=== PATIENT | female | born 1985 | race Caucasian/White ===

== ENCOUNTER 2018-10-12 12:17 | Emergency (ER) | payer MEDICAID ==
[~2018-10-12] VITALS: Ht 160 cm; Wt 86.4 kg
[2018-10-12 12:21] VITALS: BP 129/82
[2018-10-12] MEDS ORDERED: CEPH500C5 PO (13:13)
[2018-10-12] MEDS ORDERED: MUPI22OI30 TOP (13:13)
[2018-10-12] MEDS ORDERED: TRIA15OI2 TOP (13:13)
== END 2018-10-12 13:35 | disposition home or self-care (01) ==
LOC: ER 12:18
DX: L03.032 Cellulitis of left toe (principal); B35.1 Tinea unguium
CPT/HCPCS: 82948; 99283

== ENCOUNTER 2019-09-24 01:07 | Emergency (ER) | payer MEDICAID ==
[~2019-09-24] VITALS: Ht 160 cm; Wt 92.0 kg
[~2019-09-24 01:07] MED LIST: CEPH500C5 PO; TRIA15OI2 TOP
[2019-09-24] MEDS ORDERED: proCHLORperazine 10 MG/2 ml inj IV ONE (01:25)
[2019-09-24] MEDS ORDERED: ondansetron/PF 4mg/2ml inj IV ONE (01:25)
[2019-09-24] MEDS ORDERED: normal saline 1000ML IV soln IVB ONE (01:25)
[2019-09-24] MEDS ORDERED: LOPE2TAB25 PO (02:50)
[2019-09-24] MEDS ORDERED: ONDA8TAB6 PO (02:50)
[2019-09-24] MEDS ORDERED: loperamide 2mg capsule PO ONE (02:50)
[2019-09-24] MEDS ORDERED: ketorolac trometh. 30mg/ml inj. IV ONE (03:35)
[2019-09-24 03:55] LABS: ALANINE AMINOTRANSFERASE 29 U/L (12-78); ALBUMIN 4.1 G/DL (3.4-5.0); ALBUMIN/GLOBULIN RATIO 1.1 (1.1-1.5); ALKALINE PHOSPHATASE 29 IU/L (46-116); ANION GAP 8 (8-16); ASPARTATE AMINO TRANSFERASE 20 U/L (10-37); BILIRUBIN,TOTAL 0.4 MG/DL (0.1-1.0); BLOOD UREA NITROGEN 23 MG/DL (7-18); BUN/CREATININE RATIO 27.1 (6.6-38.0); CALCIUM 9.4 MG/DL (8.5-10.1); CHLORIDE 106 MMOL/L (99-107); CREATININE 0.85 MG/DL (0.40-0.90); GLUCOSE 177 MG/DL (70-104); POTASSIUM 4.2 MMOL/L (3.5-5.1); SODIUM 141 MMOL/L (135-145); TOTAL CARBON DIOXIDE 27.3 MMOL/L (24-32); TOTAL PROTEIN 7.7 G/DL (6.4-8.2); eGFR 78 ML/MIN
[2019-09-24 04:01] LABS: BETA HCG,QUANTITATIVE < 1.0 mIU/ml; LIPASE < 50 U/L (73-393)
[2019-09-24 04:09] LABS: BASOPHILS % (AUTO) 0.1 % (0-1); EOSINOPHILS % (AUTO) 0.1 % (0-6); HEMATOCRIT 41.3 % (35.0-45.0); HEMOGLOBIN 14.4 g/dl (12.0-16.0); LYMPHOCYTES # (AUTO) 0.6 X10'3 (1.1-4.8); LYMPHOCYTES % (AUTO) 4.2 % (21-51); MEAN CORPUSCULAR HEMOGLOBIN 30.6 PG (27.0-31.0); MEAN CORPUSCULAR HGB CONC 34.8 g/dL (33.0-36.5); MEAN CORPUSCULAR VOLUME 87.8 FL (78-98); MEAN PLATELET VOLUME 8.8 FL (7.4-10.4); MONOCYTES # (AUTO) 0.4 X10'3 (0-0.9); MONOCYTES % (AUTO) 2.7 % (2-12); NEUTROPHILS # (AUTO) 14.1 X10'3 (1.8-7.7); NEUTROPHILS % (AUTO) 92.9 % (42-75); PLATELET COUNT 242 X10'3 (140-440); RED CELL DISTRIBUTION WIDTH 12.7 % (11.5-14.5); WHITE BLOOD COUNT 15.2 X10'3 (4.5-11.0)
[2019-09-24 04:11] LABS: CLARITY,URINE CLEAR (Clear); COLOR,URINE STRAW (Yellow); GLUCOSE, URINE >=1000 mg/dl (Neg); KETONES,URINE 15 mg/dl (Neg); LEUKOCYTE ESTERASE ,URINE NEGATIVE (Neg); NITRITES, URINE NEGATIVE (Neg); OCCULT BLOOD,URINE NEGATIVE (Neg); PH,URINE 7.5 (4.8-8.0); PROTEIN,URINE NEGATIVE (Neg); UROBILINOGEN,URINE 0.2 E.U/dL (0.2-1.0)
[2019-09-24 04:17] LABS: UA COLLECTION TYPE OTHER
[2019-09-24 04:19] LABS: BACTERIA,URINE FEW /HPF (Neg); RBC,URINE NONE SEEN /HPF (0-2); SQUAMOUS EPITHELIAL CELL,UR FEW /LPF (FEW); WBC,URINE NONE SEEN /HPF (0-4)
[2019-09-24 04:40] VITALS: BP 153/95
== END 2019-09-24 07:24 | disposition home or self-care (01) ==
LOC: ER 01:08
DX: K52.9 Noninfective gastroenteritis and colitis, unspecified (principal); Z79.2 Long term (current) use of antibiotics; Z79.899 Other long term (current) drug therapy
CPT/HCPCS: 36415; 74176; 80053; 81001; 82948; 83690; 84702; 85025; 96361; 96374; 96375; 99284; J0780; J1885; J2405; J7030

== ENCOUNTER 2024-12-02 11:08 | Emergency (ER) | payer MEDICAID ==
[~2024-12-02] VITALS: Ht 160 cm; Wt 43.6 kg
[~2024-12-02 11:08] MED LIST changes: -CEPH500C5 PO; +LOPE2TAB25 PO; +ONDA8TAB6 PO
[2024-12-02 11:31] VITALS: TEMP 97.9
--- NOTE | 2024-12-02 12:28 | RADIOLOGY REPORT ---
CLINICAL INDICATION: trauma TECHNIQUE: 5 radiographic views of the nasal bones were obtained. Comparison: None FINDINGS/IMPRESSION: There is no evidence of acute fracture or dislocation. The visualized joint space is well maintained. The alignment is anatomical. There is no radiopaque foreign body.
--- NOTE | 2024-12-02 13:39 | Physician Documentation ---
History of Present Illness ~ Chief Complaint: Nose Pain Stated Complaint: FALL/NOSE LAC Time Seen by MD: 11:42 HPI 39-year-old female presents to the ED after having a fall this morning injuring her nose. Causing them minor laceration. This has a history of DKA and type 1 diabetes. She has a previous emergency that ultimately caused a brain injury when she did not get a appropriate treatment. In his control patient is not complaining of pain Day of Onset: December 02, 2024 Medication Reconciliation Allergies: Coded Allergies: No Known Allergies (Unverified , 12/02/24) Scheduled Loperamide Hcl (Loperamide), 1 TAB PO Q4H Ondansetron Hcl (Zofran), 1 TAB PO Q8H Triamcinolone Acetonide (Triamcinolone Acetonide), 1 APPLIC TOP Q12H Past Medical History Past Medical History: *[employer] ARCHITECT* Physical Exam Vital Signs: Temperature: 97.9, Source: Temporal, Heart Rate: 112, Respiratory Rate: 18, BP: 161/94, Pulse Oximetry: 98, Weight: 43.600 Procedures Laceration/Wound Repair Laceration : Anesthesia: Lidocaine Suture Size/Type: 4-0 Number of Superficial Sutures: 3 Tolerated Procedure Well?: yes, no complications Progress Results/Orders Results/Orders Orders - 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 was Able to repair it with lidocaine and three 4-0 sutures. Patient tolerated the procedure well Nose Diff. Dx: Considerations: Include: Abrasion, Anterior nasal bleed, Avulsion, Contusion, Coagulopathy, Fracture-nasal bone, Fracture-septum, Hypertension, Laceration, Other, Posterior nasal bleed, Retained foreign body, Septal hematoma Departure Disposition: HOME / SELF CARE / HOMELESS Impression: Primary Impression: Fall Additional Impression: Skin laceration Condition: Stable Discharge Instructions: Facial Laceration, [id number] Additional Instructions: Area clean and dry. Of the sutures removed in 5-7 days Referrals: NO PRIMARY CARE PROVIDER (PCP) Education Educated: Patient Educated regarding: diagnosis Signature Scribe Signature: c Attestation: The note accurately reflects work and decisions made by me.Tino Carpenter NP 12/02/24 14:18 TINO ORNELAS NP December 02, 2024 13:39
[2024-12-02] MEDS: LIDOcaine 1% W/epiNEPHrine 1:100,000 20ml vial SQ ONE (13:50)
[2024-12-02 14:29] VITALS: BP 168/95; PULSE 98; RESP 17; O2SAT 98
== END 2024-12-02 14:32 | disposition home or self-care (01) ==
LOC: ER 11:09
DX: S01.21XA Laceration without foreign body of nose, initial encounter (principal); E10.9 Type 1 diabetes mellitus without complications; W19.XXXA Unspecified fall, initial encounter; Y93.89 Activity, other specified; Y92.89 Other specified places as the place of occurrence of the external cause; Y99.8 Other external cause status
CPT/HCPCS: 12011; 70160; 99284